=== PATIENT | female | born 1975 | race Two or more races ===

== ENCOUNTER 2019-12-01 11:26 | Emergency (ER) | payer OTHER ==
[~2019-12-01] VITALS: Ht 165.1 cm; Wt 78.0 kg
[2019-12-01 11:40] VITALS: BP 135/78
--- NOTE | 2019-12-01 12:44 | NUR ---
Patient discharged to home in stable condition. Written and verbal after care instructions given. Patient verbalizes understanding of instruction. Pt ambulatory with a steady gait
== END 2019-12-01 12:45 | disposition home or self-care (01) ==
LOC: ER 11:30
DX: J20.9 Acute bronchitis, unspecified (principal)